=== PATIENT | female | born 1990 | race Native Hawaiian/Other Pacific Islander ===

== ENCOUNTER 2018-12-17 11:34 | Outpatient (CLI) | payer BC | END 2018-12-17 19:44 | disposition home or self-care (01) | LOC: LABW 11:34 | DX: R50.9 Fever, unspecified (principal) | CPT/HCPCS: 87502 ==

== ENCOUNTER 2019-08-07 11:31 | Outpatient (CLI) | payer BC | END 2019-08-07 23:44 | disposition home or self-care (01) | LOC: LABW 11:31 | DX: M79.10 Myalgia, unspecified site (principal); R50.9 Fever, unspecified | CPT/HCPCS: 87502 ==